=== PATIENT | female | born 1945 | race Caucasian/White ===

== ENCOUNTER → 2021-10-01 | Outpatient (CLI) | payer SELFPAY ==
--- NOTE | 2021-10-01 07:18 | MRI_ITS ---
EXAM: MR HEAD WITHOUT AND WITH INTRAVENOUS CONTRAST, INTERNAL AUDITORY CANAL PROTOCOL CLINICAL INDICATION: Disequilibrium; chronic bilateral hearing loss -- TECHNIQUE: Multiplanar and multisequence MR images of the internal auditory canal were obtained without and with intravenous contrast. This report was created using [employer] report [employer] technology. CONTRAST: 15 CC IV DOTARE, COMPARISON: None. FINDINGS: CRANIAL NERVES: Unremarkable. No mass. No abnormal enhancement. COCHLEA AND SEMICIRCULAR CANALS: Unremarkable. CEREBELLOPONTINE ANGLES: Unremarkable. No mass. BRAIN AND EXTRA-AXIAL SPACES: Increased T2 signal intensity within the cerebral white matter suggestive of chronic microvascular change. No intra- or extra-axial hemorrhage. No intracranial mass or mass effect. There is preservation of the diaz/white matter interface. Posterior fossa structures are unremarkable. Ventricles are appropriate for age. No hydrocephalus. Basal cisterns are patent. No abnormal contrast enhancement BONES/JOINTS: Unremarkable. No discrete lytic or blastic abnormalities. LYMPH NODES: Partially visualized 18 and 15 mm contrast-enhancing nodules are noted along the right parapharyngeal space suggestive of lymphadenopathy. Additional CT or MR imaging of the neck recommended. SINUSES: Mucosal thickening of the paranasal sinuses noted. MASTOID AIR CELLS: Unremarkable as visualized. Clear. ORBITS: Unremarkable as visualized. Both globes, extraocular muscles, optic nerves and retrobulbar fat appear unremarkable. MRI/Brain W/WO Contrast IMPRESSION: 1. Normal MRI appearance of the temporal bone structures including the internal auditory canal and posterior fossa. 2. Chronic microvascular changes. 3. Right parapharyngeal space no lesions suggestive of adenopathy. A follow-up CT or MR imaging of the neck recommended. Electronically Signed: Kirt Major MD at 12:07 EDT ,
[2021-10-01 07:41] LABS: CREATININE FINGERSTICK < 0.9 mg/dL (0.55-1.02); EGFR FINGERSTICK > 60.0000 mL/min (>60)
== END | disposition home or self-care (01) ==
PROVIDERS: PCP Family Medicine; Visit Provider Psychiatry & Neurology Neurology
DX: H81.90 Unspecified disorder of vestibular function, unspecified ear (principal)
CPT/HCPCS: 70553; A9575